=== PATIENT | male | born 1995 | race Caucasian/White ===

== ENCOUNTER 2024-02-23 12:29 | Emergency (ER) | payer OTHER ==
[~2024-02-23] VITALS: Ht 175.3 cm; Wt 86.8 kg
[~2024-02-23 12:29] MED LIST: LEVOTHYROXINE50 MC1 PO
[2024-02-23 12:58] LABS: BASOPHILS 0.3 % (0-2); EOSINOPHILS 0.6 % (0-6); HEMATOCRIT 42.1 % (35.0-50.0); HEMOGLOBIN 14.4 g/dL (12.0-18.0); LYMPHOCYTES 34.4 % (24-44); MCH 31.5 (27-36); MCHC 34.1 g/dl (30-36); MCV 92.3 fl (81-99); MONOCYTES 8.2 % (0-12); NEUTROPHILS 56.5 % (39-80); PLATELET COUNT 207 K/uL (140-440); RBC 4.56 M/ul (4.3-5.7); RDW 12.5 (10.5-15.0)
[2024-02-23 13:10] LABS: PARTIAL THROMBOPLASTIN TIME 27.2 Sec (22.9-41.3)
[2024-02-23 13:11] LABS: INR 1.01 (0.80-1.30); PROTIME 12.6 Sec (11.2-14.2)
[2024-02-23 13:17] LABS: ALBUMIN 4.5 g/dL (3.4-5.0); ALBUMIN/GLOBULIN RATIO 1.25 (1.1-2.4); ANION GAP 17.9 (7-21); BILIRUBIN, TOTAL 0.5 ng/dL (0.2-1.0); BUN/CREATININE RATIO 10.28 (6.0-28.6); CALCIUM 9.1 mg/dL (8.5-10.1); CREATININE, SERUM 1.07 mg/dL (0.70-1.30); POTASSIUM 3.9 mmol/L (3.5-5.1); PROTEIN, TOTAL 8.1 g/dL (6.4-8.2)
[2024-02-23] MEDS ORDERED: ASPIRIN 325 MG TAB PO ONE (13:30)
[2024-02-23] MEDS ORDERED: ATORVASTATIN 40 MG TAB PO ONE (13:30)
[2024-02-23] MEDS ORDERED: CLOPIDOGREL BISULFATE 75 MG TAB PO ONE (13:30)
[2024-02-23] MEDS ORDERED: PLAVIX75 MG PO (14:41)
[2024-02-23] MEDS ORDERED: ADULT ASPIRIN R81 MG PO (14:41)
[2024-02-23] MEDS ORDERED: LIPITOR80 MG PO (14:41)
[2024-02-23 14:55] VITALS: BP 157/102
--- NOTE | 2024-02-24 12:45 | EKG ---
[facility] [address] [facility] [place], [place] [address] Signed Normal sinus rhythm with sinus arrhythmia Incomplete right bundle branch block Borderline ECG No previous ECGs available Confirmed by Kirill Camarillo MD () on 02/24/2024 12:45:21 PM Electronically Signed By: KIRILL CAMARILLO MD 02/24/24 1245 PATIENT NAME: P[place] Electrocardiogram DATE OF : [birth year] PHYSICIAN: KIRILL CAMARILLO MD REPORT #: [id number] REPORT IS CONFIDENTIAL AND NOT TO BE RELEASED WITHOUT AUTHORIZATION
== END 2024-02-23 14:55 | disposition home or self-care (01) ==
LOC: ED 12:29
PROVIDERS: Internal Medicine
DX: G45.9 Transient cerebral ischemic attack, unspecified (principal); I10 Essential (primary) hypertension; E04.1 Nontoxic single thyroid nodule
CPT/HCPCS: 36415; 70450; 70496; 70498; 70553; 71045; 80053; 84484; 85025; 85610; 85730; 93005; 93010; 99284-25; A9577; Q9967

== ENCOUNTER 2025-07-19 19:12 | Emergency (ER) | payer OTHER ==
[~2025-07-19] VITALS: Ht 175.3 cm; Wt 90.0 kg
[~2025-07-19 19:12] MED LIST changes: +ADULT ASPIRIN R81 MG PO; +LIPITOR80 MG PO; +PLAVIX75 MG PO
[2025-07-19 19:49] VITALS: BP 144/84
== END 2025-07-19 19:52 | disposition home or self-care (01) ==
LOC: ED 19:12
DX: M62.08 Separation of muscle (nontraumatic), other site (principal); I10 Essential (primary) hypertension; Z79.82 Long term (current) use of aspirin; Z79.899 Other long term (current) drug therapy
CPT/HCPCS: 99283